=== PATIENT | female | born 1985 | race Hispanic/Latino ===

== ENCOUNTER → 2024-03-22 11:31 | Outpatient (REF) | payer OTHER, SELFPAY ==
[2024-03-22 12:37] LABS: % Basophils 0.3 % (0-2); % Eosinophils 0.5 % (0-6); % Immature Granulocytes 0.3 % (0-0.5); % Lymphocytes 41.5 % (20.5-51.1); % Monocytes 5.9 % (1.7-9.3); % Neutrophils 51.5 % (42.2-75.2); Absolute Lymphocytes 3.1 10^3/uL (1.2-3.4); Absolute Monocytes 0.4 10^3/uL (0.1-0.6); Absolute Neutrophils 3.8 10^3/uL (1.4-6.5); Hematocrit 36.3 % (37.0-47.0); Hemoglobin 12.5 g/dL (12.0-16.0); Mean Corp Hgb Conc. 34.4 g/dL (33.0-37.0); Mean Corpuscular Hgb 30.8 pg (27.0-31.0); Mean Corpuscular Volume 89.4 fL (81.0-99.0); Mean Platelet Volume 10.3 fL (7.4-10.4); Nucleated Red Blood Cells % 0 %; Platelet Count 300 10^3/uL (130-400); Red Blood Cell Count 4.06 10^6/uL (4.20-5.40); Red Cell Dist. Width 12.4 % (11.5-14.5); White Blood Cell Count 7.4 10^3/uL (4.8-10.8)
[2024-03-22 12:37] LABS: Urine Albumin Negative (Neg - Trace); Urine Bilirubin Negative (Negative); Urine Character Slightly Cloudy (Clear); Urine Color Yellow; Urine Glucose Negative (Negative); Urine Ketone Negative (Negative); Urine Leukocyte 2+ (Negative); Urine Nitrite Negative (Negative); Urine Occult Blood 4+ (Negative); Urine Urobilinogen Negative (Neg - 1+)
[2024-03-22 13:02] LABS: Urine Mucus Many; Urine Squamous Cell >30 /LPF (Few)
[2024-03-22 13:03] LABS: Urine Amorphous Seen
[2024-03-22 13:04] LABS: Urine Red Blood Cell 16-20 /HPF (0-2)
[2024-03-22 13:07] LABS: Urine Bacteria Few (Negative)
[2024-03-22 14:10] LABS: Glycohemoglobin (HgbA1c) 5.8 % (4.0-5.6)
[2024-03-22 14:18] LABS: ALT (SGPT) 25 U/L (0-35); AST (SGOT) 24 U/L (14-36); Albumin 4.4 g/dl (3.5-5.0); Alkaline Phosphatase 85 U/L (38-126); Blood Urea Nitrogen 10 mg/dl (7-17); Calcium 9.4 mg/dl (8.4-10.2); Carbon Dioxide 25 mmol/L (22-30); Chloride 105 mmol/L (98-107); Glucose 78 mg/dl (70-99); HDL Cholesterol 35 mg/dl; LDL Cholesterol, Calculated 95 mg/dl; Potassium 4.2 mmol/L (3.5-5.1); Sodium 137 mmol/L (135-145); Total Bilirubin 0.3 mg/dl (0.2-1.3); Total Cholesterol 193 mg/dl (50-199); Total Protein 6.7 g/dl (6.3-8.2); Triglyceride 319 mg/dl (10-149); Very Low Density Lipoprotein 63 mg/dl (0-30); eGFR > 60.00
[2024-03-22 14:34] LABS: Vitamin D, 25-OH*** 27.3 ng/mL (30-80)
== END ==
LOC: REG 11:31
PROVIDERS: ATTENDING PHYSICIAN Nurse Practitioner Acute Care
DX: Z00.00 Encounter for general adult medical examination without abnormal findings (principal)
CPT/HCPCS: 36415; 80053; 80061; 81003; 81015; 82306; 83036; 84443; 85025

== ENCOUNTER → 2024-06-14 10:09 | Outpatient (REF) | payer OTHER, SELFPAY | LOC: CLINIC 10:09 | PROVIDERS: ATTENDING PHYSICIAN Nurse Practitioner Adult Health | DX: M65.4 Radial styloid tenosynovitis [de Quervain] (principal) | CPT/HCPCS: 73110 ==

== ENCOUNTER → 2024-07-25 15:32 | Outpatient (REF) | payer OTHER, SELFPAY | LOC: WDC 15:32 | PROVIDERS: ATTENDING PHYSICIAN Nurse Practitioner Adult Health | DX: Z12.31 Encounter for screening mammogram for malignant neoplasm of breast (principal) | CPT/HCPCS: 77063; 77067 ==

== ENCOUNTER → 2024-08-28 09:43 | Outpatient (REF) | payer OTHER, SELFPAY | LOC: WDC 09:43 | PROVIDERS: ATTENDING PHYSICIAN Nurse Practitioner Adult Health | DX: R92.8 Other abnormal and inconclusive findings on diagnostic imaging of breast (principal) | CPT/HCPCS: 76642 ==